=== PATIENT | female | born 1945 | race Caucasian/White ===

== ENCOUNTER 2017-03-25 08:11 | Day surgery (SDC) | payer MEDICARE ==
[2017-03-25] VITALS (7 sets, daily range): BP systolic 125–140; BP diastolic 55–62; PULSE 67–125; RESP 14–18; O2SAT 94–100
[~2017-03-25] VITALS: Ht 167.6 cm; Wt 70.6 kg
[~2017-03-25 08:11] MED LIST: AZEL137S11 NS; ESTR10TA VG; ESTR42.52 VG; LOVA40TA PO; OXYQ113.2 VG
[2017-03-25] MEDS ORDERED: EPHEDrine/NS 5 mg/mL 5 mL Syringe ONE (08:12)
[2017-03-25] MEDS ORDERED: Ondansetron 2 mg/mL 2 mL Inj ONE (08:12)
[2017-03-25] MEDS ORDERED: Dexamethasone 4 mg/mL Inj ONE (08:12)
[2017-03-25] MEDS ORDERED: fentaNYL-PF 50 mCg/mL 2 mL Inj ONE (08:12)
[2017-03-25] MEDS ORDERED: Propofol 10,000 mCg/mL 20 mL Inj ONE (08:12)
[2017-03-25] MEDS: Lactated Ringer's 1,000 ML IV SCH ×2 (08:15→10:12)
[2017-03-25] MEDS ORDERED: OMEP20TA24 PO (08:29)
[2017-03-25] MEDS ORDERED: POLY17PO6 PO (08:29)
[2017-03-25] MEDS ORDERED: CA C1TAB83 PO (08:29)
[2017-03-25] MEDS ORDERED: OMEG500C PO (08:29)
[2017-03-25] MEDS ORDERED: MULT-1018 PO (08:29)
--- NOTE | 2017-03-25 09:24 | PCM.HPANE ---
Patient Data Date of Service: Mar 25, 2017 Surgeon Admitting Provider: Attending Provider:Jj Watson DO Primary Care Physician:Ana Lilia Thayer Other Provider:Ophelia Velazquez Anesthesia Reason for Visit Left Knee Torn Medial Meniscus Ht/WT & BMI Height (Feet): 5 Height (Inches): 6 Weight (Kilograms): 70.6 Body Mass Index 25.00 Allergies Coded Allergies: Penicillins (Verified Allergy, Unknown, rash, 03/17/17) Uncoded Allergies: LACTOSE INTOLERANT (Adverse Reaction, Unknown, 03/17/17) Past Anesthesia History Anesthesia History: Denies:: Abnormal Airway, Anesthesia Reactions, Difficult Intubation, Fam Anesthesia Reaction, Fam Malignant Hypertherm, Malignant Hyperthermia Diabetes History Hx Diabetes?: No MRSA MRSA: No Medications Hypertension Medication: No Home Meds Incl Beta Judy: No Reported Medications Omeprazole Magnesium (Prilosec Otc)20 Mg Tablet.dr20 Mg PO DAILY #1 PKG Ref 0 03/25/17 Polyethylene Glycol 3350 (Miralax)17 Gm Powd.pack17 Gm PO 03/25/17 [place]-3 Fatty Acids (Fish Oil)500 Mg Capsule.dr500 Mg PO 03/25/17 Ca Carbonate/Vitamin D3/Vit K (Calcium + D Soft Chewable Tab)1 Each Tab.chew1 Each PO 03/25/17 Multivitamin (Multi Vitamin Daily)1 Each Tablet1 Each PO DAILY 30 Days Ref 0 03/25/17 Estradiol (Vagifem)10 Mcg Jmjqxw68 Mcg VG 2xweek 03/17/17 Oxyquinoline/Sod.lauryl Sulfat (Trimo-Pacheco Jelly)113.4 Gm Jelly.gdrz338.4 Gm VG DIRECTED 03/17/17 Lovastatin 40 Mg Dykkqt53 Mg PO HS #30 TABLET Ref 0 03/17/17 Estradiol (Estrace)42.5 Gm Cream.appl1 G VG WEEKLY #1 TUBE Ref 0 03/17/17 Azelastine HCl 137 Mcg/0.137 Ml [place].xsfw501 Mcg NS BID 03/17/17 History History of ENT Problems?: Yes HEENT History: Positive for:: TMJ (wears nightguard) Denies:: Abnormal Airway Cataracts (forming no surgery) Difficult Intubation Dysphagia Glaucoma Hearing Problem Sinus Problem Denture Type: None Teeth Condition: Within Normal Limits Hx of Heart Problems?: No Cardiovascular History: Denies:: AICD Abdominal Aortic Aneurism Atrial Fibrillation Cardiac Surgery Chest Pain Coronary Artery Disease Edema Heart Murmur Hypertension Irregular Heartbeat Pacemaker Peripheral Vascular Rheumatic Fever Hx of Respiratory Problem?: No Respiratory History: Denies:: Asthma COPD Emphysema Oxygen Administration Pneumonia Pulmonary Embolism Tuberculosis Use of C-PAP Machine Use of Inhalers / NEBS Hx Neurologic Problems?: No Neurological History: Denies:: CVA Headaches Multiple Sclerosis Parkinson's Disease Seizures Hx of GI Problems?: Yes Hx of Problems?: No Genitourinary History: Denies:: Kidney Stones Urinary Tract Infection Female Hx: Denies:: Currently (post menopausal ) Problems with Breasts? Skin History: Denies:: History Skin Disorders? Pressure Ulcers Hx Musculoskeletal Problems?: Yes Musculoskeletal History: Positive for:: Musculoskeletal Trauma (left knee current admission problem) Osteoarthritis (CMC reconstruction micheal thumbs ) Denies:: Back Injury Fibromyalgia Joint Replacement Hx of Psycho/Social Problems?: No Psycho Social History: Denies:: Anxiety Hx Depression Hx Surgeries?: Yes (micheal [facility] thumbs, ) Hx Any Other Health Problems?: Yes Other History: Denies:: Cancer Thyroid Disease History Blood Transfusions: Positive for:: Accept Blood Products? Blood Transfuse Reaction Blood Transfusions (post childbirth) Hx Diabetes: No Hx Alcohol Use: YesAlcoholic Drinks Per Day: 2 drinks dailyHx Substance Use: NoHave You Smoked inLast 12 mo: No Stop/Bang S-Snoring: Do You Snore Loudly: No T-Tired: feel tired, fatigued: No O-Obsered: Observed not breath: No P-Blood Pressure: treated: No B- Body Mass Index > 35 kg/m2: No A- Age over 50: Yes N- Neck Large Circumference: No G- Gender Male: No FELIX Total Score: 1 FELIX Risk Assessment: Low Risk, <3 Yes Risk Assessment Category Category 1A: Patient has history of documented sleep apnea, and HAS NOT received any narcotic, sedative or anesthesia administration during this stay. Category 1B: Patient has history of documented sleep apnea, and HAS received any narcotic , sedative or anesthesia administration during this stay Category 2: Patient has SUSPECTED Obstructive Sleep Apnea, and HAS received any narcotic , sedative or anesthesia administration during this stay. Category 3: Patient has SUSPECTED Obstructive Sleep Apnea and HAS NOT received narcotic, sedative or anesthesia administration during this stay. Category 4: Outpatient in Procedural Areas with known sleep apnea or who screen positive for High Risk via the STOP/BANG questionnaire. Exam Exam Vital Signs Vital Signs Date Time Temp Pulse Resp B/P Pulse Ox O2 Delivery O2 Flow Rate FiO2 03/25/17 08:37 36.3 67 16 140/62 97 Room Air 03/25/17 08:33 36.3 67 16 140/62 97 Room Air General Appearance: Alert, Oriented X3, Cooperative, No Acute Distress HEENT/AIRWAY: MP 1, Neck Movement (from), Mouth Opening (3 fb, popping if too wide; no pain) Lungs: Clear to Auscultation, Normal Air Movement Heart: Exam Unremarkable, Regular Rate/Rhythm, No Murmurs/Rubs/Gallops Meds/Labs/Diagnostics Admission Meds Current Medications Lactated Ringer's (Lr) 1,000 ml @ 120 mls/hr Q8H20M IV Last administered on t 08:15; Start 03/25/17 at 05:00; Stop 03/25/17 at 13:19 Plan Impression Patient chart reviewed, patient interviewed and anesthestic plan with risks, benefits, and alternatives discussed, and informed consent obtained. NPO per Anesth. Guidelines: Yes ASA Physical Status: ASA2 Mod Systemic Disease Anesthetic Plan: GA Bene/Risks/Altern/Consents: Yes HP Complete Prior to Induction: Yes Sher Morrow MD Mar 25, 2017 09:24
[2017-03-25] MEDS ORDERED: Lactated Ringer's 500 ML IV PRN (10:24)
[2017-03-25] MEDS ORDERED: Lactated Ringer's 1,000 ML IV SCH (10:24)
[2017-03-25] MEDS ORDERED: EPHEDrine Sulfate 50 mg/mL Inj IM PRN (10:25)
[2017-03-25] MEDS ORDERED: EPHEDrine Sulfate 50 mg/mL Inj IVPUSH PRN (10:25)
[2017-03-25] MEDS ORDERED: fentaNYL-PF 50 mCg/mL 2 mL Inj IVPUSH PRN (10:25)
[2017-03-25] MEDS ORDERED: HYDROmorphone 1 mg/mL Inj IVPUSH PRN (10:25)
[2017-03-25] MEDS ORDERED: Labetalol 5 mg/mL 4 mL Inj IV PRN (10:25)
[2017-03-25] MEDS ORDERED: Atropine 0.4 mg/mL Inj IVPUSH PRN (10:25)
[2017-03-25] MEDS ORDERED: Ondansetron 2 mg/mL 2 mL Inj IVPUSH PRN (10:25)
[2017-03-25] MEDS ORDERED: MetoCLOpramide 5 mg/mL 2 mL Inj IVPUSH PRN (10:25)
[2017-03-25] MEDS ORDERED: Phenylephrine 10,000 mCg/mL Inj IVPUSH PRN (10:25)
[2017-03-25] MEDS ORDERED: Lidocaine 2%-Epi 1:100,000 20 mL Inj INFILTRATE ONE (10:38)
[2017-03-25] MEDS ORDERED: Ropivacaine-PF 0.5% 30 mL Inj INFILTRATE ONE (10:38)
[2017-03-25] MEDS ORDERED: Ketorolac 15 mg/mL Inj IVPUSH ONE (11:10)
[2017-03-25] MEDS ORDERED: hydrOXYzine Pamoate 25 mg Capsule PO PRN (11:10)
--- NOTE | 2017-03-25 12:22 | PCM.ANEP1 ---
Post Anesthesia PACU Phase 1 Assessment Date of Service: Mar 25, 2017 Vital Signs Vital Signs Date Time Temp Pulse Resp B/P Pulse Ox O2 Delivery O2 Flow Rate FiO2 03/25/17 11:37 72 16 130/60 100 Room Air 03/25/17 11:21 70 18 133/56 100 Nasal Cannula 2 03/25/17 11:14 77 15 130/60 96 Nasal Cannula 2 03/25/17 11:06 37.2 125 14 125/55 94 Nasal Cannula 2 03/25/17 08:37 36.3 67 16 140/62 97 Room Air 03/25/17 08:33 36.3 67 16 140/62 97 Room Air Anesthetic Administered: GA Level of Alertness: Awake, talking CORNELL's with Equal Strength: Yes Pain: No Nausea or Vomiting: No CV Function & Hydration Stable: Yes Airway Device: none Oxygen Delivery: Room Air Lungs: Clear to Auscultation, Normal Air Movement Dermatome Level: Full Sensation PACU Phase 2 Assessment Complications: No Follow up Care: No Patient Instructions Provided: N/A Sher Morrow MD Mar 25, 2017 12:22
--- NOTE | 2017-03-25 14:03 | OP ---
[address] [address] OPERATIVE REPORT PATIENT: BAL BRANDT : 1945 MR#: [id number] ADMIT: 03/25/2017 JOB ID: [id number] DATE OF SURGERY: 03/25/2017 PREOPERATIVE DIAGNOSIS(ES): Left knee torn medial meniscus. POSTOPERATIVE DIAGNOSIS(ES): Left knee torn medial meniscus, with medial compartment degenerative arthritis as well as medial plica. PROCEDURE: Left knee video arthroscopy with partial medial meniscectomy and plica resection with limited synovectomy. SURGEON: Jj Watson DO ANESTHESIA: General. INDICATION: The patient is a 72-year-old female who injured her left knee, had persistent medial knee pain, and had an MRI performed which demonstrated a torn medial meniscus. She had a cortisone injection that only gave short-lived relief and wished to proceed with a knee arthroscopy. We discussed the risks, benefits, and possible complications of surgery including, but not limited to, injury to nerves and vessels, infection, bleeding, incomplete relief symptoms, stiffness, need for additional procedures. The patient had good understanding. All questions were answered. She wished to proceed. PROCEDURE IN DETAIL: The patient was brought to the operating room. She was given an LMA general anesthetic. The left lower extremity was sterilely prepped and draped. An incision was made over the anterolateral knee at the level of the joint line and the blunt trocar was introduced into the knee. Inspection was undertaken. She was found to have some synovitis in the patellofemoral region and a medial plica. 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 Her meniscal tear was resected back to a stable base with a combination of biters and shaver. Her ACL was found to be intact. Her lateral compartment was in excellent condition. Her patellofemoral synovitis and medial plica were resected with the shaver. She did not have any significant degenerative changes in the patellofemoral joint. The scope was then removed. The portals were closed with interrupted nylon suture. Naropin was added as an adjunct local anesthetic. Sterile dressings were applied. The patient tolerated the procedure well. Blood loss was minimal. POSTOPERATIVE PROTOCOL: Have the patient weightbear to tolerance. Use crutches as needed. Ice and elevate. Follow up for recheck in two weeks postop. She was given a prescription for Dilaudid 2 mg p.o. for pain as she is unable to tolerate other pain medications due to nausea. She is given 20 tablets.
== END 2017-03-25 23:59 | disposition home or self-care (01) ==
LOC: SAS 08:11
PROVIDERS: ATTEND Orthopaedic Surgery
DX: S83.232A Complex tear of medial meniscus, current injury, left knee, initial encounter (principal); M17.12 Unilateral primary osteoarthritis, left knee; M67.52 Plica syndrome, left knee; E78.5 Hyperlipidemia, unspecified; K44.9 Diaphragmatic hernia without obstruction or gangrene; K57.30 Diverticulosis of large intestine without perforation or abscess without bleeding; W10.8XXA Fall (on) (from) other stairs and steps, initial encounter; Y93.89 Activity, other specified; Y92.511 Restaurant or cafe as the place of occurrence of the external cause; Z87.891 Personal history of nicotine dependence; Z79.890 Hormone replacement therapy; Y99.8 Other external cause status
CPT/HCPCS: 29881; J1100; J1885; J2405; J2795; J3010; J7120